=== PATIENT | male | born 1995 | race Caucasian/White ===

== ENCOUNTER → 2018-09-02 11:33 | Outpatient (CLI) | payer MEDICAID, SELFPAY ==
[2018-09-01 12:44] VITALS: BMI 25.0
[2018-09-02 12:34] LABS: Microalbumin,Random Urine < 5.0 mg/L (NO RANGE EST.)
[2018-09-02 12:51] LABS: AST(SGOT) 40 U/L (15-37); Alanine Aminotransfer ALT/SGPT 69 U/L (16-61); Albumin, Serum 3.5 g/dL (3.2-5.0); Alkaline Phosphatase 81 U/L (45-117); Anion Gap 9 (5-15); BUN 19 mg/dL (7-18); BUN/Creat Ratio 18.6 RATIO (10-20); Calcium,Total 8.9 mg/dL (8.5-10.1); Chloride 106 mmol/L (98-107); Cholesterol 182 mg/dL (200); Creatinine, Serum 1.02 mg/dL (0.70-1.30); EST Glomerular Filtration Rate 97 mL/min (>60); Est Glom Filt Rate - Afr Amer 117 mL/min (>60); Globulin 3.4 g/dL (2.2-4.2); Glucose 239 mg/dL (74-106); High Density Lipoprotein 47 mg/dL; Potassium 4.2 mmol/L (3.5-5.1); Protein, Total 6.9 g/dL (6.4-8.2); Sodium Level 142 mmol/L (136-145); Triglycerides 169 mg/dL
[2018-09-02 12:52] LABS: Very Low Density Lipoprotein 34 mg/dL (5-40)
[2018-09-02 14:05] LABS: Hemoglobin A1c 11.4 % (4.2-6.3)
== END ==
PROVIDERS: Family Provider Family Medicine; PCP Family Medicine; Referring Provider Nurse Practitioner; Visit Provider Nurse Practitioner
DX: E10.9 Type 1 diabetes mellitus without complications (principal)
CPT/HCPCS: 36415; 80053; 80061; 82043; 82570; 83036

== ENCOUNTER 2021-04-12 18:08 | Emergency (ER) | payer OTHER, SELFPAY ==
[2021-04-11 14:02] VITALS: BMI 25.2
[2021-04-12 18:12] VITALS: BP 137/86; PULSE 109; RESP 18; TEMP 38.8; O2SAT 94; BMI 25.3
--- NOTE | 2021-04-12 18:41 | EKG12_ITS ---
Test Reason : N/V Blood Pressure : / mmHG Vent. Rate : 068 BPM Atrial Rate : 068 BPM P-R Int : 116 ms QRS Dur : 098 ms QT Int : 352 ms P-R-T Axes : 062 087 036 degrees QTc Int : 374 ms Normal sinus rhythm Normal ECG Confirmed by FRANCINE FLORES, LAMONT ([id number]), newspaper editor DOC ARREOLA ([id number]) on 04/16/2021 9:38:53 AM Referred By: TRISH Confirmed By:LAMONT ESCAMILLA MD
[2021-04-12] MEDS: 0.9% Normal Saline 1,000 ML 999 ML IV (18:57)
[2021-04-12] MEDS: Ketorolac 15 MG/ML Vial IV (18:57)
[2021-04-12] MEDS: Ondansetron 4 MG/2 ML Vial IV (18:57)
--- NOTE | 2021-04-12 18:57 | RAD_ITS ---
STUDY: X-RAY CHEST REASON FOR EXAM: Male, 25 years old. fever nausea vomiting for 5 days diarrhea TECHNIQUE: Frontal portable view of the chest COMPARISON: None. FINDINGS: The there is right hilar and infrahilar right lower lobe opacity. There is no pneumothorax, pulmonary edema or pleural effusions. Cardiac size is normal. RAD/Chest 1 View (Portable) IMPRESSION: Acute right lung pneumonia, possibly bacterial versus viral or combination. Electronically Signed: Elyse Rowland MD at 19:48 EDT Tel , Service support ,
[2021-04-12 19:11] LABS: Bedside Glucose 153 mg/dL (70-110)
[2021-04-12 19:17] LABS: Absolute Lymphocyte Count 1.46 X10^3/uL (0.83-4.51); Basophil# 0.04 X10^3/uL; Basophil% 0.3 % (0-1); Eosinophil# 0.02 X10^3/uL; Eosinophils% 0.2 % (0-5); Hematocrit 44.2 % (40-54); Hemoglobin 15.3 g/dL (13.0-16.5); Lymphocyte # 1.46 X10^3/ul (0.83-4.51); Lymphocyte % 11.3 % (19-41); Mean Corp Hgb Conc 34.6 g/dL (32-36); Mean Corpuscular Hgb 29.9 pg (27.0-32.0); Mean Corpuscular Volume 86.3 fL (80-94); Mean Platelet Vol. 10.6 fl (6.2-12.0); Monocyte% 10.8 % (0-10); NRBC Flagged by Analyzer 0 % (0-5); Neutrophil # 9.97 X10^3/uL (2.7-7.7); Neutrophil % 77.1 % (47-70); Platelet Count 227 K/mm3 (150-450); RBC Distribution Width CV 11.6 % (11.6-14.6); RBC Distribution Width SD 37.1 fl (35.1-43.9); Red Blood Count 5.12 M/mm3 (4.6-6.2); White Blood Count 12.9 K/mm3 (4.4-11.0)
[2021-04-12 19:32] LABS: ALB/GLOB Ratio 0.8 RATIO (0.9-2.4); AST(SGOT) 18 U/L (15-37); Alanine Aminotransfer ALT/SGPT 25 U/L (16-61); Albumin, Serum 3.2 g/dL (3.2-5.0); Alkaline Phosphatase 79 U/L (45-117); Anion Gap 11 (5-15); BUN 15 mg/dL (7-18); BUN/Creat Ratio 14.2 RATIO (10-20); Calcium,Total 8.8 mg/dL (8.5-10.1); Chloride 99 mmol/L (98-107); Creatinine, Serum 1.06 mg/dL (0.70-1.30); EST Glomerular Filtration Rate 91 mL/min (>60); Est Glom Filt Rate - Afr Amer 110 mL/min (>60); Estimated Creatinine Clearance 114.45 ml/min; Glucose 154 mg/dL (74-106); Potassium 3.6 mmol/L (3.5-5.1); Protein, Total 7.2 g/dL (6.4-8.2); Sodium Level 135 mmol/L (136-145)
--- NOTE | 2021-04-12 19:38 | EDS_ITS ---
HPI History of Present Illness Chief Complaint: Nausea/Vomiting/Diarrhea Narrative Narrative: Patient presenting with fever on and off throughout the course of the week. He states is been between 101 and 102. It is intermittent. He states he takes ibuprofen and about 45 minutes later he will break out into a sweat and have chills and then you feel better for hours and then his fever would return. Patient states he is a type I diabetic and uses insulin. His blood sugars have been between 120 and 220 this week. He denies polyuria or polydipsia. He states he is trying to keep down fluids although he has nausea. He states his symptoms started on Wednesday and on he started to feel better so he ate some pizza and then he started feeling ill again. Patient does complain of chills, body aches, no change in taste or smell. He has nausea and diarrhea but does not specifically have any respiratory complaints. [facility] Medical History Type 1 diabetes mellitus Home Medications blood sugar diagnostic #10 ea 08/17/18 [History Last Taken Unknown] glucagon (human recombinant) 1 mg solution for injection 1 mg IM ONCE 08/17/18 [History Last Taken Unknown] lancets 28 gauge #25 ea 08/17/18 [History Last Taken Unknown] omnipod misc. pods #10 ea NS 11/08/18 [Rx Last Taken Unknown] flash glucose sensor #2 ea 11/01/20 [Rx Last Taken Unknown] insulin aspart U-100 100 unit/mL (3 mL) subcutaneous pen 20 unit SC TID #18 ml 11/01/20 [Rx Last Taken Unknown] pen needle, diabetic 32 gauge x #150 ea 11/01/20 [Rx Last Taken Unknown] insulin degludec 100 unit/mL (3 mL) subcutaneous pen 36 unit SUBCUT DAILY #11 ml 02/04/21 [Rx Last Taken Unknown] Allergy/AdvReac Type Severity Reaction Status Date / Time No Known Allergies Allergy Verified 04/12/21 18:10 Family History Grandmother Arthritis Father Hyperlipidemia Mother Arthritis Breast cancer Surgical History flexion contracture of joint of hand, release Hx of tonsillectomy Social History Smoking Status: Never smoker second hand exposure: No alcohol intake: current alcohol intake frequency: a few times a month substance use type: does not use what type of physical activity do you participate in: other frequency: 1-2 times per week ROS ROS ED Constitutional Constitutional ED: Reports chills, fever(s) and sweats Eyes Eyes: Denies blurry vision or change in vision ENT ENT ED: Denies rhinorrhea or sore throat Cardiovascular Cardiovascular: Denies chest pain or palpitations Respiratory/Chest Respiratory/Chest: Denies cough or dyspnea Gastrointestinal Gastrointestinal: Reports abdominal pain, diarrhea, nausea and vomiting Genitourinary Genitourinary ED: Denies dysuria or hematuria Musculoskeletal Musculoskeletal: Denies arthralgias or myalgias Integumentary Denies abscess or rash Neurologic Neurologic: Denies headache(s) or weakness Psychiatric Psychiatric: Denies anxiety or depression EXAM Physical Exam Const Vital Signs: 04/12/21 18:12 04/12/21 20:10 04/12/21 20:31 Temperature 101.8 F H Temperature Source Oral Pulse Rate 109 H 69 Respiratory Rate 18 14 18 Blood Pressure 137/86 H 130/77 H Blood Pressure Mean 103 94 Pulse Ox 94 97 Oxygen Delivery Method Room Air Room Air Positive well nourished General Appearance ED: NAD HEENT atraumatic Eyes PERRL and EOMs intact bilaterally Neck full ROM General: Negative for tenderness Chest Wall inspection of chest normal and palpation of chest normal Resp normal respiratory effort and clear to auscultation bilaterally Cardio regular rhythm Rate: regular rate GI normal to inspection, nondistended, normoactive bowel sounds Back/Spine normal to inspection Extremity normal to inspection and full ROM Neuro oriented x3 Sensorium / Orientation: alert Psych mental status grossly normal and thought process normal Skin no rashes or lesions noted and no wounds MDM MDM MDM Narrative Medical decision making narrative: Patient presenting with nausea, diarrhea, generalized fatigue. He does complained of chills and sweats intermittently throughout the week. Patient has decreased p.o. intake and his blood sugars have been running between 120 and 220. Patient had EKG performed on arrival which shows a sinus rhythm with a ventricular rate of [address] elevation, depression, ischemic change on my interpretation. Chest x-ray shows right lower lobe infiltrate. Patient's blood work shows a slight leukocytosis of 12.9 with a left shift. Renal function electrolytes are normal. Patient has small acetone but his glucose is 154 without anion gap. Urinalysis negative for infection. Patient's fever did break he felt improved. He was given a liter of IV fluids. He is already been tested for COVID-19 as well as influenza. Patient's vital signs are stable and he is afebrile. He is not tachypneic or tachycardic. He states he does not feel short of breath. Patient was discussed with Dr. Palma who is on-call for Dr. Mclaughlin who is retired. We did discuss putting the patient on antibiotics and did determine that Levaquin would be the best course of action. I did do a Covid PCR just to ensure that patient did not had COVID-19 and has an elevated leukocytosis secondary to vomiting. Patient is not absolutely lymphopenic. Patient is comfortable this plan. He is to monitor his blood sugars that if he is are elevated he should try to call his wildlife conservation officer first but if he cannot get seen he is counseled to come back to the emergency room. If patient is otherwise doing well he can follow-up with Dr. Palma. Patient stable for discharge at this time. Impression: 1. right lower lobe pneumonia Lab Data Attestation: I reviewed the patient's lab results. Labs: Laboratory Results - last 24 hr 04/12/21 04/12/21 04/12/21 18:55 18:55 18:55 WBC 12.9 H RBC 5.12 Hgb 15.3 Hct 44.2 MCV 86.3 MCH 29.9 MCHC 34.6 RDW Std Deviation 37.1 RDW Coeff of [place] 11.6 Plt Count 227 MPV 10.6 Immature Gran % (Auto) 0.300 Neut % (Auto) 77.1 H Lymph % (Auto) 11.3 L [place] % (Auto) 10.8 H Eos % (Auto) 0.2 Baso % (Auto) 0.3 Absolute Neuts (auto) 10.0 H Absolute Lymphs (auto) 1.46 Nucleated RBC % 0 Sodium 135 L Potassium 3.6 Chloride 99 Carbon Dioxide 25.0 Anion Gap 11 BUN 15 Creatinine 1.06 Estim Creat Clear Calc 114.45 Est GFR (MDRD) Af Amer 110 Est GFR (MDRD) Non-Af 91 BUN/Creatinine Ratio 14.2 Glucose 154 H Calcium 8.8 Total Bilirubin 0.70 AST 18 ALT 25 Alkaline Phosphatase 79 Total Protein 7.2 Albumin 3.2 Globulin 4.0 Albumin/Globulin Ratio 0.8 L Urine Color Urine Clarity Urine pH Ur Specific [place] Urine Protein Urine Glucose (UA) Urine Ketones Urine Occult Blood Urine Nitrite Urine Bilirubin Urine Urobilinogen Ur Leukocyte Esterase Urine RBC Urine WBC Ur Squamous Epith Cells Urine Bacteria Urine Mucus Acetone Level SMALL H POC Glucose 04/12/21 04/12/21 19:06 20:00 WBC RBC Hgb Hct MCV MCH MCHC RDW Std Deviation RDW Coeff of [place] Plt Count MPV Immature Gran % (Auto) Neut % (Auto) Lymph % (Auto) [place] % (Auto) Eos % (Auto) Baso % (Auto) Absolute Neuts (auto) Absolute Lymphs (auto) Nucleated RBC % Sodium Potassium Chloride Carbon Dioxide Anion Gap BUN Creatinine Estim Creat Clear Calc Est GFR (MDRD) Af Amer Est GFR (MDRD) Non-Af BUN/Creatinine Ratio Glucose Calcium Total Bilirubin AST ALT Alkaline Phosphatase Total Protein Albumin Globulin Albumin/Globulin Ratio Urine Color Yellow Urine Clarity Clear Urine pH 6.5 Ur Specific [place] 1.005 Urine Protein Negative Urine Glucose (UA) Normal Urine Ketones 50 H Urine Occult Blood Negative Urine Nitrite Negative Urine Bilirubin Negative Urine Urobilinogen Normal Ur Leukocyte Esterase Negative Urine RBC 0 SEEN Urine WBC 0-5 SEEN Ur Squamous Epith Cells 0 SEEN Urine Bacteria 0 SEEN Urine Mucus 0 SEEN Acetone Level POC Glucose 153 H Radiography Diagnostic Testing: Radiology Impression Chest X-Ray 04/12/21 18:57 IMPRESSION: Acute right lung pneumonia, possibly bacterial versus viral or combination. Electronically Signed: Elyse Rowland MD at 19:48 EDT Tel , Service support , Discharge Plan Triage Chief Complaint: Nausea/Vomiting/Diarrhea Other Complaint: General Illness ED Provider: Sly Machado Dx/Rx/DC Orders Prescriptions: No Action glucagon (human recombinant) 1 mg solution for injection 1 mg recon soln 1 mg IM ONCE RF: 0 (DME) FreeStyle Lite Strips strip See Dose Instructions .ROUTE .MEDSUPPLY Qty: 10 RF: 0 (DME) lancets 28 gauge 28 gauge misc See Dose Instructions .ROUTE .MEDSUPPLY Qty: 25 RF: 0 (DME) FreeStyle Vickey 2 Sensor Kit See Rx Instructions .ROUTE .MEDSUPPLY Qty: 2 RF: 6 (DME) pen needle, diabetic [BD Ultra-Fine Bonnie Pen Needle] 32 gauge x 5/32 needle See Rx Instructions .ROUTE .MEDSUPPLY Qty: 150 RF: 6 (DME) omnipod misc. pods Qty: 10 RF: 11 insulin aspart U-100 [Novolog Flexpen U-100 Insulin] 100 unit/mL (3 mL) insulin pen 20 unit SC TID Qty: 18 RF: 5 Tresiba FlexTouch U-100 100 unit/mL (3 mL) insulin pen 36 unit subcut DAILY Qty: 11 RF: 3 Primary Care Provider: Hung Mclaughlin III
[2021-04-12 20:07] LABS: Bacteria 0 SEEN /hpf (None Seen); Mucous, Urine 0 SEEN /hpf (<or=2+); Red Blood Cells-Urine 0 SEEN /hpf (0-5); Squamous Epithelial Cells - UA 0 SEEN /hpf (0-5)
[2021-04-12 20:09] LABS: Color, Urine Yellow (Yellow); Glucose, Dipstick Normal (Normal); Ketone-Dipstick 50 mg/dl (Negative); Leukocyte Esterase-Dipstick Negative /ul (Negative); Nitrite-Dipstick Negative (Negative); Occult Blood-Urine Negative /ul (Negative); Protein-Dipstick Negative (Negative); Specific Gravity, Urine 1.005 (1.002-1.030); Urine Bilirubin Dipstick Negative (Negative); Urine Clarity Clear (Clear); Urine Urobilinogen Normal (Normal); Urine pH 6.5 (5.0 - 8.0)
[2021-04-12 20:10] VITALS: RESP 14
[2021-04-12 20:31] VITALS: BP 130/77; PULSE 69; RESP 18; O2SAT 97
[2021-04-12 20:47] LABS: White Blood Cells 0-5 SEEN /hpf (0-5)
[2021-04-12] MEDS: levoFLOXacin 750 MG Tablet PO (22:07)
[2021-04-12] MEDS: proMETHazine 25 MG Tablet PO (22:07)
[2021-04-12 22:17] VITALS: BP 144/74; PULSE 78; RESP 16; O2SAT 99
[2021-04-12 22:25] LABS: Probe Check PASS; Specimen Processing Control PASS
== END 2021-04-12 22:18 | disposition home or self-care (01) ==
PROVIDERS: Emergency Provider Student in an Organized Health Care Education/Training Program; PCP Family Medicine
DX: J18.9 Pneumonia, unspecified organism (principal); E10.9 Type 1 diabetes mellitus without complications; Z79.4 Long term (current) use of insulin
CPT/HCPCS: 71045; 80053; 81001; 82009; 82962; 85025; 87635; 93005; 96361; 96374; 96375; 99285; J7030; U0005; A4216; J2405; U0003

== ENCOUNTER → 2022-11-12 | Outpatient (CLI) | payer OTHER, SELFPAY ==
[2022-11-12 12:35] LABS: Hemoglobin A1c 7.3 % (3.8-5.6)
[2022-11-12 12:40] LABS: AST(SGOT) 26 U/L (15-37); Alanine Aminotransfer ALT/SGPT 52 U/L (16-61); Albumin, Serum 3.8 g/dL (3.2-5.0); Alkaline Phosphatase 106 U/L (45-117); Anion Gap 5 (5-15); BUN 19 mg/dL (7-18); BUN/Creat Ratio 18.3 RATIO (10-20); Calcium,Total 9.6 mg/dL (8.5-10.1); Chloride 107 mmol/L (98-107); Cholesterol 216 mg/dL (200); Creatinine, Serum 1.04 mg/dL (0.70-1.30); EST Glomerular Filtration Rate 92 mL/min (>60); Est Glom Filt Rate - Afr Amer 111 mL/min (>60); Globulin 3.9 g/dL (2.2-4.2); Glucose 126 mg/dL (74-106); High Density Lipoprotein 38 mg/dL; Potassium 4.2 mmol/L (3.5-5.1); Protein, Total 7.7 g/dL (6.4-8.2); Sodium Level 142 mmol/L (136-145); Thyroid Stim Hormone (TSH) 1.72 uIU/mL (0.358-3.74); Triglycerides 134 mg/dL; Very Low Density Lipoprotein 27 mg/dL (5-40)
[2022-11-12 12:44] LABS: Microalbumin,Random Urine 10.8 mg/L (NO RANGE EST.); Microalbumin:Creatinine Ratio 4.7 mg/g CRE (<30 mg/g CRE)
== END | disposition home or self-care (01) ==
LOC: BIMLAB 09:03
PROVIDERS: Referring Provider Internal Medicine Endocrinology, Diabetes & Metabolism; Visit Provider Internal Medicine Endocrinology, Diabetes & Metabolism
DX: E10.9 Type 1 diabetes mellitus without complications (principal); I10 Essential (primary) hypertension
CPT/HCPCS: 36415; 80053; 80061; 82043; 82570; 83036; 84443